=== PATIENT | female | born 1975 | race Caucasian/White ===

== ENCOUNTER 2019-06-03 13:15 | Outpatient (CLI) | payer OTHER | END 2019-06-03 13:16 | disposition home or self-care (01) | LOC: SONOGRAMA 13:15 | DX: N64.4 Mastodynia (principal) ==

== ENCOUNTER 2022-10-31 10:38 | Outpatient (CLI) | payer OTHER | END 2022-10-31 10:39 | disposition home or self-care (01) | LOC: NUCLEAR 10:38 | PROVIDERS: ATTEND Obstetrics & Gynecology | DX: M81.0 Age-related osteoporosis without current pathological fracture (principal) ==